=== PATIENT | male | born 1970 | race American Indian/Alaskan Native ===

== ENCOUNTER 2016-06-18 09:36 | Emergency (ER) | payer MEDICAID ==
[2016-06-18 09:36] VITALS: BMI 23.7
[2016-06-18 09:48] VITALS: RESP 16; O2SAT 100
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
[2016-06-18 10:12] VITALS: TEMP 98.2
--- NOTE | 2016-06-18 12:14 | RAD ---
PROCEDURE: Right Knee Radiographs. HISTORY: fall r/o fx COMPARISON: None. FINDINGS: BONES: There is no acute displaced fracture or dislocation. Status post open reduction and internal fixation of tibial fractures. There are old fracture deformities in the proximal and mid tibia and fibula. JOINTS: Normal. No osteoarthritis. JOINT EFFUSION: None. OTHER FINDINGS: None. IMPRESSION: No acute displaced fracture or dislocation. Old fracture deformities in the proximal and mid tibia and fibula and status post fixation of tibial fractures with an intramedullary jacinto and screws. No hardware complications.
[2016-06-18 12:54] VITALS: BP 142/60; PULSE 86
== END 2016-06-18 12:54 | disposition home or self-care (01) ==
LOC: ED 09:36
DX: S83.91XA Sprain of unspecified site of right knee, initial encounter (principal); V09.9XXA Pedestrian injured in unspecified transport accident, initial encounter; Y92.410 Unspecified street and highway as the place of occurrence of the external cause